=== PATIENT | male | born 1980 | race Caucasian/White ===

== ENCOUNTER → 2019-03-29 | Outpatient (CLI) | payer BC ==
--- NOTE | 2019-03-30 13:49 | MR ---
EXAMINATION TYPE: MR pituitary wo/w con DATE OF EXAM: 03/29/2019 COMPARISON: NONE HISTORY: Hyperprolactinemia TECHNIQUE: Multiplanar, multisequence images of the brain and brainstem is performed without and with IV contras t, utilizing 12 mL intravenous Gadavist . Pituitary mass protocol was utilized with small field-of-vi ew images of the pituitary. FINDINGS: The there is a pituitary mass measuring 1.5 x 1.6 x 1.4 cm demonstrating T1 precontrast isointensity and T2 heterogeneity with post contrast heterogenous enhancement. This extends cranially to nearly ab ut the optic chiasm, 1 mm within the optic chiasm. This surrounds the right cavernous portion of the internal carotid artery 180 degrees and approximately 90 degrees on the left. There is no abnormal th ickening of the pituitary stalk or hypothalamus. The limited images of the brain also obtained demonstrating no suspicious enhancement. There is some polypoid mucosal thickening of the bilateral maxillary sinuses that is only partially visualized. IMPRESSION: There is a 1.6 cm pituitary mass nearly abutting the optic chiasm and partially surroundi ng the cavernous portions of the internal carotid arteries as detailed above. 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 This does not appear as a meningioma.
== END | disposition home or self-care (01) ==
LOC: RADMRIMAIN 10:54
PROVIDERS: ATTEND Family Medicine
DX: E23.6 Other disorders of pituitary gland (principal); E22.1 Hyperprolactinemia
CPT/HCPCS: 70553; A9585

== ENCOUNTER → 2019-04-21 | Outpatient (CLI) | payer BC ==
[2019-04-21 18:50] LABS: Anion Gap 10.2 mmol/L (4.00-12.00); Calcium 9.4 mg/dL (8.7-10.3); Carbon Dioxide 25.8 mmol/L (21.6-31.8); Non-African American GFR(CKD) 58.6 (60.0-200.0); Potassium 4.1 mmol/L (3.5-5.5)
== END | disposition home or self-care (01) ==
LOC: LABWHC1 14:00
PROVIDERS: ATTEND Internal Medicine
DX: E22.1 Hyperprolactinemia (principal)
CPT/HCPCS: 36415; 80048; 84146

== ENCOUNTER → 2019-07-22 | Outpatient (CLI) | payer BC ==
[2019-07-22 17:12] LABS: African American GFR (CKD) 98.2 (60.0-200.0); Anion Gap 11.1 mmol/L (4.00-12.00); BUN/Creat Ratio 11.82 Ratio (12.00-20.00); Calcium 9.1 mg/dL (8.7-10.3); Carbon Dioxide 26.9 mmol/L (21.6-31.8); Non-African American GFR(CKD) 84.7 (60.0-200.0); Potassium 4.3 mmol/L (3.5-5.5)
[2019-07-22 17:21] LABS: Follicle Stimulating Hormone 5.8 mIU/mL; Luteinizing Hormone 4.6 mIU/mL; Prolactin 0.8 ng/mL (2.1-17.7)
== END | disposition home or self-care (01) ==
LOC: LABWHC1 08:48
PROVIDERS: ATTEND Internal Medicine
DX: E22.1 Hyperprolactinemia (principal)
CPT/HCPCS: 36415; 80048; 82024; 82533; 83001; 83002; 84146; 84402; 84403

== ENCOUNTER → 2019-10-25 | Outpatient (CLI) | payer BC ==
[2019-10-25 16:32] LABS: African American GFR (CKD) 88.4 (60.0-200.0); Anion Gap 4.9 mmol/L (4.00-12.00); Calcium 9.5 mg/dL (8.7-10.3); Carbon Dioxide 26.1 mmol/L (21.6-31.8); Non-African American GFR(CKD) 76.2 (60.0-200.0); Potassium 4.6 mmol/L (3.5-5.5)
[2019-10-25 17:57] LABS: Prolactin 1.2 ng/mL (2.1-17.7)
== END | disposition home or self-care (01) ==
LOC: LABWHC1 09:47
PROVIDERS: ATTEND Internal Medicine
DX: D35.2 Benign neoplasm of pituitary gland (principal); E22.1 Hyperprolactinemia
CPT/HCPCS: 36415; 80048; 82024; 82533; 84146

== ENCOUNTER → 2020-08-04 | Outpatient (CLI) | payer BC ==
[2020-08-04 12:04] LABS: African American GFR (CKD) 87.8 (60.0-200.0); Anion Gap 8.5 mmol/L (4.00-12.00); BUN/Creat Ratio 9.17 Ratio (12.00-20.00); Calcium 8.9 mg/dL (8.7-10.3); Carbon Dioxide 24.5 mmol/L (21.6-31.8); Non-African American GFR(CKD) 75.7 (60.0-200.0); Potassium 4.2 mmol/L (3.5-5.5)
[2020-08-04 12:13] LABS: Prolactin 3.6 ng/mL (2.1-17.7)
== END | disposition home or self-care (01) ==
LOC: LABWHC1 07:45
PROVIDERS: ATTEND Internal Medicine
DX: D35.2 Benign neoplasm of pituitary gland (principal); E22.1 Hyperprolactinemia
CPT/HCPCS: 36415; 80048; 82024; 82533; 84146